=== PATIENT | male | born 1960 | race Caucasian/White ===

== ENCOUNTER → 2025-02-13 11:28 | Outpatient (REF) | payer BC, SELFPAY | LOC: HWRAD 11:28 | PROVIDERS: ATTENDING PHYSICIAN Family Medicine | DX: Z87.891 Personal history of nicotine dependence (principal) | CPT/HCPCS: 71271 ==

== ENCOUNTER → 2025-07-17 13:28 | Outpatient (REF) | payer BC, SELFPAY | LOC: RAD 13:28 | PROVIDERS: ATTENDING PHYSICIAN Internal Medicine Cardiovascular Disease; FAMILY PHYSICIAN Family Medicine | DX: Z87.891 Personal history of nicotine dependence (principal) | CPT/HCPCS: 76770 ==